=== PATIENT | female | born 1995 | race Caucasian/White ===

== ENCOUNTER 2021-07-04 19:25 | Emergency (ER) | payer MEDICAID, OTHER | END 2021-07-04 21:00 | disposition home or self-care (01) | LOC: MADERS 19:25 | DX: O99.519 Diseases of the respiratory system complicating pregnancy, unspecified trimester (principal); J32.0 Chronic maxillary sinusitis; Z3A.00 Weeks of gestation of pregnancy not specified | CPT/HCPCS: 99283 ==

== ENCOUNTER 2024-03-28 15:09 | Emergency (ER) | payer MEDICAID, OTHER ==
[2024-03-28] MEDS ORDERED: Boostrix 0.5 ML (Tdap) VIAL (>/=7 yrs of age) ONE (16:04)
== END 2024-03-28 16:25 | disposition home or self-care (01) ==
LOC: MADERS 15:09
DX: S71.151A Open bite, right thigh, initial encounter (principal); W54.0XXA Bitten by dog, initial encounter
CPT/HCPCS: 90471; 90715

== ENCOUNTER 2025-01-31 12:16 | Emergency (ER) | payer BC ==
[2025-01-31 12:43] LABS: Glucose, Urine (Dipstick) Negative (Negative); Leukocyte Large (Negative); Protein, Urine (Dipstick) Negative (Neg-Trace); Specific Gravity, Urine 1.020 (1.005-1.030)
[2025-01-31 12:45] LABS: Pregnancy Test - Urine (BHCG) POSITIVE (Negative); Pregu Control Background? CLEAR/WHITE (CLR/WHITE); Pregu Control Bar Appear? YES (CONTROL BAR)
[2025-01-31 12:50] LABS: CAUTI Indications for Culture Pelvic or flank pain; RBC/HPF 0-3 HPF (0-3); WBC/HPF Greater than 50 HPF (0-3)
[2025-01-31 12:51] LABS: Bacteria/HPF 1+ HPF (None Seen); Trichomonas/HPF 1+ HPF (None Seen)
[2025-01-31 12:53] LABS: Urine Culture Reflex Yes Yes
[2025-01-31] MEDS ORDERED: cefTRIAXone (ROCEPHIN) 500 MG VIAL ONE (13:08)
[2025-01-31] MEDS ORDERED: Azithromycin 250 MG TAB ONE (13:08)
[2025-02-02 00:56] LABS: Chlamydia by PCR, Vaginal Swab Not Detected (NotDetected); GC by PCR, Vaginal Swab Not Detected (NotDetected)
== END 2025-01-31 13:45 | disposition home or self-care (01) ==
LOC: MADERS 12:16
DX: O99.891 Other specified diseases and conditions complicating pregnancy (principal); R82.71 Bacteriuria; K59.00 Constipation, unspecified; O98.819 Other maternal infectious and parasitic diseases complicating pregnancy, unspecified trimester; A59.9 Trichomoniasis, unspecified; Z3A.00 Weeks of gestation of pregnancy not specified
CPT/HCPCS: 81001; 81025; 87077; 87086; 87480; 87491; 87510; 87591; 87660; 96372; 99284; J0696

== ENCOUNTER 2025-03-26 12:06 | Emergency (ER) | payer BC ==
[2025-03-26] MEDS ORDERED: Azithromycin 250 MG TAB ONE (12:48)
[2025-03-26] MEDS ORDERED: cefTRIAXone (ROCEPHIN) 500 MG VIAL ONE (12:48)
[2025-03-26] MEDS ORDERED: Lidocaine 1% PF 5 ML VIAL ONE (12:49)
[2025-03-26 12:57] LABS: Glucose, Urine (Dipstick) Negative (Negative); Leukocyte Large (Negative); Protein, Urine (Dipstick) Negative (Neg-Trace); Specific Gravity, Urine 1.020 (1.005-1.030)
[2025-03-26 13:10] LABS: Bacteria/HPF Rare-Few HPF (None Seen); CAUTI Indications for Culture Dysuria,urgency,freq; RBC/HPF None Seen HPF (0-3); Trichomonas/HPF 3+ HPF (None Seen); Urine Culture Reflex No No; Yeast-Budding Rare HPF (None Seen)
[2025-03-26 22:46] LABS: Chlamydia by PCR, Vaginal Swab Not Detected (NotDetected); GC by PCR, Vaginal Swab Not Detected (NotDetected)
== END 2025-03-26 13:27 | disposition home or self-care (01) ==
LOC: MADERS 12:06
DX: O98.312 Other infections with a predominantly sexual mode of transmission complicating pregnancy, second trimester (principal); A59.01 Trichomonal vulvovaginitis; Z3A.27 27 weeks gestation of pregnancy
CPT/HCPCS: 81001; 87077; 87086; 87186; 87480; 87491; 87510; 87591; 87660; 96372; 99284; J0696